=== PATIENT | female | born 1975 | race Caucasian/White ===

== ENCOUNTER 2024-03-22 06:57 | Day surgery (SDC) | payer OTHER ==
[~2024-03-22] VITALS: Ht 160 cm; Wt 54.4 kg
[2024-03-22] MEDS ORDERED: BENZOCAINE 20% 0.5mL UD SPRAY MM ONE (07:15)
[2024-03-22] MEDS ORDERED: MEPERIDINE 100 MG INJ. 100 MG/ML VIAL ONE (07:16)
[2024-03-22] MEDS ORDERED: MIDAZOLAM HCL 5 MG/5 ML VIAL ONE (07:16)
[2024-03-22 08:13] LABS: HCG,QUAL RESULT NEGATIVE (NEGATIVE)
[2024-03-22 10:08] VITALS: O2SAT 100
[2024-03-22 13:38] VITALS: BP_SYST 106; PULSE 68; RESP 15; TEMP 97.9
== END 2024-03-22 10:55 | disposition home or self-care (01) ==
LOC: SMU 06:57 → SDS 06:57
PROVIDERS: ATTEND Internal Medicine
DX: R19.4 Change in bowel habit (principal); K29.50 Unspecified chronic gastritis without bleeding; K31.A0 Gastric intestinal metaplasia, unspecified; K29.80 Duodenitis without bleeding; K63.89 Other specified diseases of intestine; K21.9 Gastro-esophageal reflux disease without esophagitis; R10.12 Left upper quadrant pain; K64.8 Other hemorrhoids; Z86.010 Personal history of colon polyps
CPT/HCPCS: 45380; 43239; 84703; 88305; 88312; 88313; 99153; 99152; G0378; J2250; J2175